=== PATIENT | female | born 1960 | race American Indian/Alaskan Native ===

== ENCOUNTER 2018-06-09 00:44 | Emergency (ER) | payer OTHER ==
--- NOTE | 2018-06-09 02:52 | XRay Report ---
PROCEDURE: XR CHEST ROUTINE 2V TECHNIQUE: PA and lateral chest radiographs were obtained. HISTORY: cough/rosalva COMPARISONS: None. FINDINGS: Heart: Normal. Mediastinum/Vessels: Normal. Lungs/Pleural space: Lungs are expanded. There are no infiltrates, effusions or pneumothoraces.. Bony thorax: No acute osseous abnormality. IMPRESSION: Heart size is normal.. Lungs are expanded. There are no infiltrates, effusions or pneumothoraces.. This document is electronically signed by Stephon Barrios MD., June 09 2018 02:50:42 AM ET
--- NOTE | 2018-06-09 03:09 | Emergency Department Report ---
Minor Respiratory - HPI Chief Complaint: Upper Respiratory Infection Stated Complaint: HEADACHE, BACK PAIN, AND CHILLS Time Seen by Provider: 06/09/18 03:00 Duration: Today Minor Respiratory: Yes Rhinorrhea, Yes Sore Throat, Yes Able to Tolerate Fluids, Yes Cough, Yes Fever, No Sick Contacts, No Hemoptysis, No Chest Pain, No Shortness of Breath Other History: 58-year-old female comes in for sore throat cough and runny nose. Patient reports that this started today. She denies any fever chills no nausea no vomiting. ED Review of Systems ROS: Stated complaint: HEADACHE, BACK PAIN, AND CHILLS Other details as noted in HPI Constitutional: fever Eyes: denies: eye pain, eye discharge, vision change ENT: throat pain, congestion Respiratory: cough Cardiovascular: denies: chest pain, palpitations Endocrine: no symptoms reported Gastrointestinal: denies: abdominal pain, nausea, diarrhea Genitourinary: denies: urgency, dysuria, discharge Musculoskeletal: denies: back pain, joint swelling, arthralgia Skin: denies: rash, lesions Neurological: headache. denies: weakness, paresthesias Psychiatric: denies: anxiety, depression Hematological/Lymphatic: denies: easy bleeding, easy bruising ED Past Medical Hx - Past Medical History Previous Medical History?: Yes Hx Hypertension: Yes (2011) Hx Renal Disease: No Hx Seizures: No - Surgical History Past Surgical History?: Yes Additional Surgical History: Knee surgery bilat - Social History Smoking Status: Never Smoker Substance Use Type: None - Medications Home Medications: Home Medications Medication Instructions Recorded Confirmed Last Taken Type Lisinopril [Zestril TAB] 20 mg PO QDAY 12/18/12 02/12/13 02/12/13 06:00 History Hydrocodone Bit/Acetaminophen 1 each PO Q6H PRN #40 tablet 12/25/12 02/12/13 02/11/13 19:00 Rx [Lorcet 10-650 Tablet] Acetaminophen/Codeine 1 tab PO Q6H PRN #12 tab 12/19/13 Unknown Rx [Acetaminophen-Codeine #3 TAB] Lisinopril [Zestril TAB] 20 mg PO QDAY #30 tablet 12/19/13 Unknown Rx methOCARBAMOL [Robaxin] 500 mg PO Q6H PRN #20 tablet 12/19/13 Unknown Rx Lisinopril [Zestril] 20 mg PO QDAY #30 tablet 06/09/18 Unknown Rx Oseltamivir [Tamiflu] 75 mg PO BID #10 cap 06/09/18 Unknown Rx Minor Respiratory Exam - Exam General: Vital signs noted. No distress. Alert and acting appropriately. HEENT: Yes Moist Mucous Membranes, No Pharyngeal Erythema, No Pharyngeal Exudates, No Rhinorrhea, No Conjuctival Injection, No Frontal Tenderness, No Maxillary Tenderness Ear: Neither TM Bulge, Neither TM Erythema, Neither EAC Pain, Neither EAC Discharge Neck: Yes Supple, No Adenopathy Lungs: Yes Good Air Exchange, No Wheezes, No Ronchi, No Stridor, No Cough, No Labored Respirations, No Retractions, No Use of Accessory Muscles, No Other Abnormal Lung Sounds Neurologic: Alert and oriented, no deficits. Musculoskeletal: Unremarkable. ED Course Vital Signs 06/09/18 01:00 Temperature 100.8 F H Pulse Rate 105 H Respiratory 18 Rate Blood Pressure 116/75 [Left] O2 Sat by Pulse 96 Oximetry ED Medical Decision Making - Radiology Data Radiology results: report reviewed Patient: WILL LU MR#: [id number] : 1960 Acct:[id number] Age/Sex: 58 / F ADM Date: 06/09/18 Loc: ED Attending Dr: Ordering Physician: ALINA MORRIS MD Date of Service: 06/09/18 Procedure(s): XR chest routine 2V Accession Number(s): [id number] cc: ALINA MORRIS MD Fluoro Time In Minutes: PROCEDURE: XR CHEST ROUTINE 2V TECHNIQUE: PA and lateral chest radiographs were obtained. HISTORY: cough/rosalva COMPARISONS: None. FINDINGS: Heart: Normal. Mediastinum/Vessels: Normal. Lungs/Pleural space: Lungs are expanded. There are no infiltrates, effusions or pneumothoraces.. Bony thorax: No acute osseous abnormality. IMPRESSION: Heart size is normal.. Lungs are expanded. There are no infiltrates, effusions or pneumothoraces.. This document is electronically signed by Stephon Valle MD., June 09 2018 02:50:42 AM ET Transcribed By: CO Dictated By: STEPHON VALLE MD Electronically Authenticated By: STEPHON VALLE MD Signed Date/Time: 06/09/18251 DD/ 9 TD/TT: 06/09/18119 - Medical Decision Making Patient has been evaluated by this provider in [facility]. Patient chest x-ray shows no meningeal examination. Patient be treated with Tamiflu for influenza. Patient is instructed to complete antiviral medication. She is instructed to increase her water intake and advance her diet as tolerated she can take Tylenol and/or Motrin if she is able to tolerate Motrin. Critical care attestation.: If time is entered above; I have spent that time in minutes in the direct care of this critically ill patient, excluding procedure time. ED Disposition Clinical Impression: Viral syndrome Disposition: DC-01 TO HOME OR SELFCARE Is pt being admited?: No Does the pt Need Aspirin: No Condition: Stable Instructions: Influenza (ED), Viral Syndrome (ED) Additional Instructions: Please take medications as prescribed. Increase her water intake advance her diet as tolerated follow up with her primary care provider I have listed did a clinic below for your convenience. Prescriptions: Oseltamivir [Tamiflu] 75 mg PO BID #10 cap Lisinopril [Zestril] 20 mg PO QDAY #30 tablet Referrals: JOSÉ LUIS AMBROSIO MD [Primary Care Provider] - 3-5 Days Forms: Accompanied Note
[2018-06-09] MEDS ORDERED: TYLENOL PO ONE (03:27)
[2018-06-09 03:47] VITALS: BP 122/70
== END 2018-06-09 03:45 | disposition home or self-care (01) ==
LOC: ED 00:44
DX: B34.9 Viral infection, unspecified (principal); I10 Essential (primary) hypertension
CPT/HCPCS: 71046